=== PATIENT | male | born 1985 | race Caucasian/White ===

== ENCOUNTER 2019-12-09 16:20 | Emergency (ER) | payer SELFPAY ==
[~2019-12-09] VITALS: Ht 182.9 cm; Wt 88.0 kg
[~2019-12-09 16:20] MED LIST: CEPHALEXIN500 MG PO; NORCO 5-325 TA1 EACH PO; SEPTRA DS TABL1 EACH PO
== END 2019-12-09 18:05 | disposition home or self-care (01) ==
LOC: ED 16:20
DX: B37.41 Candidal cystitis and urethritis (principal); A63.8 Other specified predominantly sexually transmitted diseases; F17.200 Nicotine dependence, unspecified, uncomplicated; Z88.0 Allergy status to penicillin
CPT/HCPCS: 87491; 87591; 96372; 99283-25; J0696

== ENCOUNTER 2020-12-09 10:31 | Emergency (ER) | payer OTHER ==
[~2020-12-09] VITALS: Ht 182.9 cm; Wt 83.9 kg
[2020-12-09] MEDS ORDERED: DOXYCYCLINE HY100 MG PO (11:55)
== END 2020-12-09 12:26 | disposition home or self-care (01) ==
LOC: ED 10:31
DX: N34.2 Other urethritis (principal); F17.200 Nicotine dependence, unspecified, uncomplicated; Z88.0 Allergy status to penicillin
CPT/HCPCS: 81001; 87088; 87491; 87591; 96372; 99283; J0696